=== PATIENT | female | born 1950 | race African-American/Black ===

== ENCOUNTER 2022-02-17 13:26 | Inpatient (IN) | payer MEDICARE, OTHER ==
[~2022-02-17] VITALS: Ht 162.6 cm; Wt 49.9 kg
[2022-02-17] MEDS ORDERED: ALBUTEROL SULFATE HFA 90 MCG/PUFF 8 GM INHALER IH PRN (17:00)
[2022-02-17 17:03] VITALS: BP 148/72
[2022-02-17 20:00] VITALS: BP 152/92
[2022-02-17] MEDS: BUDESONIDE/FORMOTEROL FUMARATE 80-4.5 MCG/PUFF 10.2 GM INHALER IH SCH (21:00)
[2022-02-17] MEDS: IPRATROPIUM BROMIDE HFA 17 MCG/PUFF 12.9 GM INHALER IH SCH (21:00)
[2022-02-17] MEDS: TICAGRELOR 90 MG TABLET PO SCH (21:25)
[2022-02-17] MEDS: GABAPENTIN 300 MG CAPSULE PO SCH (21:25)
[2022-02-17] MEDS: ATORVASTATIN CALCIUM 40 MG TABLET PO SCH (21:26)
[2022-02-17] MEDS: MELATONIN 3 MG TABLET PO PRN (21:29)
[2022-02-17] MEDS: ETHYL ALCOHOL 62% ANTISEPTIC NASAL SANITIZER 0.6 ML AMPUL NASAL SCH (22:10)
[2022-02-18] MEDS: ALPRAZolam 0.25 MG TABLET PO PRN (03:31)
[2022-02-18 06:30] VITALS: BP 97/56
[2022-02-18 07:07] LABS: BASOPHILS % (AUTO) 0.4 % (0.0-2.0); EOSINOPHILS % (AUTO) 1.3 % (1.0-6.0); HEMATOCRIT 21.9 % (36-46); HEMOGLOBIN 7.5 g/dL (12.0-16.0); LYMPHOCYTES # (AUTO) 2.7 K/uL (1.0-4.8); LYMPHOCYTES % (AUTO) 43.7 % (22.0-44.0); MEAN CORPUSCULAR HEMOGLOBIN 31.2 pg (26.0-34.0); MEAN CORPUSCULAR HGB CONC 34.1 G/dL (31.0-37.0); MEAN CORPUSCULAR VOLUME 92 fL (80-100); MONOCYTES # (AUTO) 0.5 K/uL (0.1-1.0); MONOCYTES % (AUTO) 7.6 % (2.0-9.0); NEUTROPHILS # (AUTO) 2.9 K/uL (1.8-7.7); PLATELET COUNT (AUTO) 169 K/uL (150-450); RED BLOOD CELL COUNT(AUTO) 2.39 MIL/uL (4.00-5.20); RED CELL DISTRIBUTION WIDTH 12.8 % (11.5-14.5)
[2022-02-18 07:22] LABS: ALANINE AMINOTRANSFERASE 24 U/L (12-78); ALKALINE PHOSPHATASE 104 U/L (46-116); ANION GAP 8 mmol/L (8-16); ASPARTATE AMINOTRANSFERASE 30 U/L (15-37); BILIRUBIN,TOTAL 0.4 mg/dL (0.1-1.0); CALCIUM, TOTAL 8.8 mg/dL (8.8-10.5); CARBON DIOXIDE 23 mmol/L (22-29); CHLORIDE 108 mmol/L (98-107); CREATININE 0.84 mg/dL (0.60-1.30); GLUCOSE,RANDOM 108 mg/dL (70-110); POTASSIUM 3.4 mmol/L (3.5-5.1); SODIUM SERUM 139 mmol/L (136-145); TOTAL PROTEIN, SERUM 6.4 g/dL (6.4-8.2); UREA NITROGEN, BLOOD 16 mg/dL (7-18)
[2022-02-18 07:23] LABS: GLOMERULAR FILTR. RATE CALC > 60 mL/min (>60)
[2022-02-18 09:00] VITALS: BP 100/64
[2022-02-18] MEDS: BUDESONIDE/FORMOTEROL FUMARATE 80-4.5 MCG/PUFF 10.2 GM INHALER IH SCH ×2 (09:00→20:20)
[2022-02-18] MEDS: IPRATROPIUM BROMIDE HFA 17 MCG/PUFF 12.9 GM INHALER IH SCH ×2 (09:00→20:20)
[2022-02-18] MEDS: ETHYL ALCOHOL 62% ANTISEPTIC NASAL SANITIZER 0.6 ML AMPUL NASAL SCH ×2 (09:08→20:20)
[2022-02-18] MEDS: MULTIVITAMINS WITH MINERALS, THERAPEUTIC TABLET PO SCH (09:09)
[2022-02-18] MEDS: SERTRALINE HCL 50 MG TABLET PO SCH (09:09)
[2022-02-18] MEDS: ASPIRIN 81 MG CHEWABLE TABLET PO SCH (09:09)
[2022-02-18] MEDS: TICAGRELOR 90 MG TABLET PO SCH ×2 (09:10→20:20)
[2022-02-18] MEDS: GABAPENTIN 300 MG CAPSULE PO SCH ×3 (09:10→20:21)
[2022-02-18] MEDS: FLUDROCORTISONE ACETATE 0.1 MG TABLET PO SCH (09:10)
[2022-02-18] MEDS ORDERED: POTASSIUM CHLORIDE 20 MEQ ER TABLET PO ONE (12:00)
[2022-02-18] MEDS: ACETAMINOPHEN 325 MG TABLET PO PRN (12:24)
[2022-02-18] MEDS ORDERED: POTASSIUM CHL 10 MEQ/WATER 50 ML IV PRN (14:45)
[2022-02-18] MEDS ORDERED: MAGNESIUM OXIDE 400 MG TABLET PO PRN (14:45)
[2022-02-18] MEDS ORDERED: MAGNESIUM SULFATE 2 GM/WATER 50 ML IV PRN (14:45)
[2022-02-18] MEDS ORDERED: MAGNESIUM SULFATE 4 GM/WATER 100 ML IV PRN (14:45)
[2022-02-18] MEDS ORDERED: POTASSIUM CHLORIDE 20 MEQ ER TABLET PO PRN (14:45)
[2022-02-18] MEDS: FERROUS SULFATE 325 MG EC TABLET PO SCH (16:34)
[2022-02-18 20:05] VITALS: BP 128/65
[2022-02-18] MEDS: MELATONIN 3 MG TABLET PO PRN (20:21)
[2022-02-18] MEDS: PANTOPRAZOLE SODIUM 40 MG DR TABLET PO SCH (20:21)
[2022-02-18] MEDS: ATORVASTATIN CALCIUM 40 MG TABLET PO SCH (20:21)
[2022-02-18] MEDS ORDERED: PANTOPRAZOLE SODIUM 40 MG DR TABLET PO SCH (21:00)
[2022-02-19 06:48] LABS: BASOPHILS % (AUTO) 0.6 % (0.0-2.0); EOSINOPHILS % (AUTO) 1.5 % (1.0-6.0); HEMATOCRIT 22.5 % (36-46); HEMOGLOBIN 7.7 g/dL (12.0-16.0); LYMPHOCYTES # (AUTO) 2.7 K/uL (1.0-4.8); LYMPHOCYTES % (AUTO) 40.1 % (22.0-44.0); MEAN CORPUSCULAR HEMOGLOBIN 31.5 pg (26.0-34.0); MEAN CORPUSCULAR HGB CONC 34.4 G/dL (31.0-37.0); MEAN CORPUSCULAR VOLUME 92 fL (80-100); MONOCYTES # (AUTO) 0.5 K/uL (0.1-1.0); MONOCYTES % (AUTO) 7.1 % (2.0-9.0); NEUTROPHILS # (AUTO) 3.4 K/uL (1.8-7.7); NEUTROPHILS % (AUTO) 50.7 % (40.0-70.0); PLATELET COUNT (AUTO) 190 K/uL (150-450); RED BLOOD CELL COUNT(AUTO) 2.45 MIL/uL (4.00-5.20)
[2022-02-19 07:13] LABS: % IRON SATURATION 16.4 % (22-44)
[2022-02-19 08:01] VITALS: BP 135/68
[2022-02-19] MEDS: GABAPENTIN 300 MG CAPSULE PO SCH ×3 (08:17→20:26)
[2022-02-19] MEDS: PANTOPRAZOLE SODIUM 40 MG DR TABLET PO SCH ×2 (08:18→20:28)
[2022-02-19] MEDS: TICAGRELOR 90 MG TABLET PO SCH ×2 (08:18→21:31)
[2022-02-19] MEDS: SERTRALINE HCL 50 MG TABLET PO SCH (08:18)
[2022-02-19] MEDS: FERROUS SULFATE 325 MG EC TABLET PO SCH ×2 (08:19→16:56)
[2022-02-19] MEDS: ASPIRIN 81 MG CHEWABLE TABLET PO SCH (08:20)
[2022-02-19] MEDS: ETHYL ALCOHOL 62% ANTISEPTIC NASAL SANITIZER 0.6 ML AMPUL NASAL SCH ×2 (08:23→20:28)
[2022-02-19] MEDS: IPRATROPIUM BROMIDE HFA 17 MCG/PUFF 12.9 GM INHALER IH SCH ×2 (08:23→21:00)
[2022-02-19] MEDS: BUDESONIDE/FORMOTEROL FUMARATE 80-4.5 MCG/PUFF 10.2 GM INHALER IH SCH ×2 (08:23→21:00)
[2022-02-19 09:00] VITALS: BP 127/70
[2022-02-19] MEDS: FLUDROCORTISONE ACETATE 0.1 MG TABLET PO SCH (09:00)
[2022-02-19 09:19] LABS: POTASSIUM 3.8 mmol/L (3.5-5.1)
[2022-02-19] MEDS: MULTIVITAMINS WITH MINERALS, THERAPEUTIC TABLET PO SCH (09:27)
[2022-02-19 20:11] VITALS: BP 141/71
[2022-02-19] MEDS: ATORVASTATIN CALCIUM 40 MG TABLET PO SCH (20:26)
[2022-02-19] MEDS: MELATONIN 3 MG TABLET PO PRN (21:30)
[2022-02-19] MEDS: MUPIROCIN CALCIUM 2% 22 GM OINTMENT NASAL SCH (21:36)
[2022-02-19] MEDS: ALPRAZolam 0.25 MG TABLET PO PRN (22:49)
[2022-02-20] MEDS: FERROUS SULFATE 325 MG EC TABLET PO SCH ×2 (08:26→17:45)
[2022-02-20] MEDS: ASPIRIN 81 MG CHEWABLE TABLET PO SCH (08:27)
[2022-02-20] MEDS: ETHYL ALCOHOL 62% ANTISEPTIC NASAL SANITIZER 0.6 ML AMPUL NASAL SCH ×2 (08:27→20:14)
[2022-02-20] MEDS: TICAGRELOR 90 MG TABLET PO SCH ×2 (08:28→20:14)
[2022-02-20] MEDS: FLUDROCORTISONE ACETATE 0.1 MG TABLET PO SCH (08:28)
[2022-02-20] MEDS: PANTOPRAZOLE SODIUM 40 MG DR TABLET PO SCH ×2 (08:29→20:15)
[2022-02-20] MEDS: MULTIVITAMINS WITH MINERALS, THERAPEUTIC TABLET PO SCH (08:29)
[2022-02-20] MEDS: GABAPENTIN 300 MG CAPSULE PO SCH ×3 (08:29→20:15)
[2022-02-20] MEDS: SERTRALINE HCL 50 MG TABLET PO SCH (08:30)
[2022-02-20] MEDS: LIDOCAINE 5% TRANSDERMAL PATCH TD SCH (08:31)
[2022-02-20] MEDS: MUPIROCIN CALCIUM 2% 22 GM OINTMENT NASAL SCH ×2 (08:34→20:14)
[2022-02-20] MEDS: BUDESONIDE/FORMOTEROL FUMARATE 80-4.5 MCG/PUFF 10.2 GM INHALER IH SCH ×2 (08:39→21:00)
[2022-02-20] MEDS: IPRATROPIUM BROMIDE HFA 17 MCG/PUFF 12.9 GM INHALER IH SCH ×2 (08:39→21:00)
[2022-02-20 08:54] VITALS: BP 106/72
[2022-02-20] MEDS: DOCUSATE SODIUM 250 MG CAPSULE PO SCH (20:14)
[2022-02-20] MEDS: ATORVASTATIN CALCIUM 40 MG TABLET PO SCH (20:15)
[2022-02-20] MEDS: MELATONIN 3 MG TABLET PO PRN (20:15)
[2022-02-20 20:20] VITALS: BP 128/59
[2022-02-20] MEDS: -LIDODERM PATCH NOTE- MISC SCH (22:49)
[2022-02-21] VITALS (7 sets, daily range): BP systolic 132–150; BP diastolic 60–75
[2022-02-21 07:14] LABS: EOSINOPHILS % (AUTO) 1.6 % (1.0-6.0); HEMOGLOBIN 7.1 g/dL (12.0-16.0); LYMPHOCYTES # (AUTO) 2.5 K/uL (1.0-4.8); LYMPHOCYTES % (AUTO) 40.7 % (22.0-44.0); MEAN CORPUSCULAR HGB CONC 35.5 G/dL (31.0-37.0); MEAN CORPUSCULAR VOLUME 93 fL (80-100); MONOCYTES # (AUTO) 0.5 K/uL (0.1-1.0); MONOCYTES % (AUTO) 8.5 % (2.0-9.0); NEUTROPHILS % (AUTO) 48.2 % (40.0-70.0); PLATELET COUNT (AUTO) 193 K/uL (150-450); RED BLOOD CELL COUNT(AUTO) 2.15 MIL/uL (4.00-5.20); RED CELL DISTRIBUTION WIDTH 13.7 % (11.5-14.5)
[2022-02-21 08:13] LABS: ANION GAP 7 mmol/L (8-16); CARBON DIOXIDE 26 mmol/L (22-29); CHLORIDE 107 mmol/L (98-107); CREATININE 1.04 mg/dL (0.60-1.30); GLUCOSE,RANDOM 114 mg/dL (70-110); POTASSIUM 3.8 mmol/L (3.5-5.1); SODIUM SERUM 140 mmol/L (136-145); UREA NITROGEN, BLOOD 16 mg/dL (7-18)
[2022-02-21 08:14] LABS: GLOMERULAR FILTR. RATE CALC > 60 mL/min (>60)
[2022-02-21 08:58] LABS: PROTHROMBIN TIME 10.6 SEC (9.4-11.6)
[2022-02-21] MEDS: IPRATROPIUM BROMIDE HFA 17 MCG/PUFF 12.9 GM INHALER IH SCH ×2 (09:00→20:43)
[2022-02-21] MEDS: BUDESONIDE/FORMOTEROL FUMARATE 80-4.5 MCG/PUFF 10.2 GM INHALER IH SCH ×2 (09:00→20:43)
[2022-02-21] MEDS ORDERED: SODIUM CHLORIDE 0.9% 500 ML IV ONE (09:07)
[2022-02-21] MEDS: FERROUS SULFATE 325 MG EC TABLET PO SCH ×2 (09:18→16:34)
[2022-02-21] MEDS: ETHYL ALCOHOL 62% ANTISEPTIC NASAL SANITIZER 0.6 ML AMPUL NASAL SCH ×2 (09:19→20:41)
[2022-02-21] MEDS: ASPIRIN 81 MG CHEWABLE TABLET PO SCH (09:19)
[2022-02-21] MEDS: MUPIROCIN CALCIUM 2% 22 GM OINTMENT NASAL SCH ×2 (09:19→20:42)
[2022-02-21] MEDS: PANTOPRAZOLE SODIUM 40 MG DR TABLET PO SCH ×2 (09:20→20:41)
[2022-02-21] MEDS: GABAPENTIN 300 MG CAPSULE PO SCH ×3 (09:20→20:41)
[2022-02-21] MEDS: MULTIVITAMINS WITH MINERALS, THERAPEUTIC TABLET PO SCH (09:20)
[2022-02-21] MEDS: DOCUSATE SODIUM 250 MG CAPSULE PO SCH ×2 (09:20→20:41)
[2022-02-21] MEDS: SERTRALINE HCL 50 MG TABLET PO SCH (09:21)
[2022-02-21] MEDS: FLUDROCORTISONE ACETATE 0.1 MG TABLET PO SCH (09:23)
[2022-02-21] MEDS: TICAGRELOR 90 MG TABLET PO SCH ×2 (09:26→20:41)
[2022-02-21] MEDS: LIDOCAINE 5% TRANSDERMAL PATCH TD SCH (09:26)
[2022-02-21] MEDS ORDERED: PEG 3350/NA SULF,BICARB,CL/KCL 4000 ML SOLUTION PO ONE (11:00)
[2022-02-21 16:54] LABS: % IRON SATURATION 23.7 % (22-44)
[2022-02-21] MEDS: ATORVASTATIN CALCIUM 40 MG TABLET PO SCH (20:41)
[2022-02-21] MEDS: -LIDODERM PATCH NOTE- MISC SCH (20:42)
[2022-02-21] MEDS: MELATONIN 3 MG TABLET PO PRN (22:33)
[2022-02-21] MEDS: 0.9% SODIUM CHLORIDE 10 ML SYRINGE IVP SCH (22:35)
[2022-02-22 07:05] LABS: BASOPHILS % (AUTO) 0.6 % (0.0-2.0); EOSINOPHILS % (AUTO) 1.6 % (1.0-6.0); HEMATOCRIT 24.4 % (36-46); HEMOGLOBIN 8.7 g/dL (12.0-16.0); LYMPHOCYTES # (AUTO) 2.6 K/uL (1.0-4.8); LYMPHOCYTES % (AUTO) 35.8 % (22.0-44.0); MEAN CORPUSCULAR HEMOGLOBIN 31.6 pg (26.0-34.0); MEAN CORPUSCULAR HGB CONC 35.6 G/dL (31.0-37.0); MEAN CORPUSCULAR VOLUME 89 fL (80-100); MONOCYTES # (AUTO) 0.6 K/uL (0.1-1.0); MONOCYTES % (AUTO) 8.1 % (2.0-9.0); NEUTROPHILS # (AUTO) 3.9 K/uL (1.8-7.7); NEUTROPHILS % (AUTO) 53.9 % (40.0-70.0); PLATELET COUNT (AUTO) 202 K/uL (150-450); RED BLOOD CELL COUNT(AUTO) 2.75 MIL/uL (4.00-5.20); RED CELL DISTRIBUTION WIDTH 15.4 % (11.5-14.5)
[2022-02-22] MEDS: SERTRALINE HCL 50 MG TABLET PO SCH (07:31)
[2022-02-22] MEDS: ASPIRIN 81 MG CHEWABLE TABLET PO SCH (07:32)
[2022-02-22] MEDS: FERROUS SULFATE 325 MG EC TABLET PO SCH ×2 (07:32→17:28)
[2022-02-22] MEDS: MULTIVITAMINS WITH MINERALS, THERAPEUTIC TABLET PO SCH (07:33)
[2022-02-22] MEDS: GABAPENTIN 300 MG CAPSULE PO SCH ×3 (07:33→20:17)
[2022-02-22] MEDS: PANTOPRAZOLE SODIUM 40 MG DR TABLET PO SCH ×2 (07:33→20:17)
[2022-02-22] MEDS: TICAGRELOR 90 MG TABLET PO SCH ×2 (07:33→20:17)
[2022-02-22] MEDS: FLUDROCORTISONE ACETATE 0.1 MG TABLET PO SCH (07:34)
[2022-02-22] MEDS: LIDOCAINE 5% TRANSDERMAL PATCH TD SCH (07:34)
[2022-02-22] MEDS: 0.9% SODIUM CHLORIDE 10 ML SYRINGE IVP SCH ×2 (07:35→20:19)
[2022-02-22] MEDS: ETHYL ALCOHOL 62% ANTISEPTIC NASAL SANITIZER 0.6 ML AMPUL NASAL SCH ×2 (07:36→20:18)
[2022-02-22] MEDS: MUPIROCIN CALCIUM 2% 22 GM OINTMENT NASAL SCH ×2 (07:37→20:18)
[2022-02-22] MEDS: IPRATROPIUM BROMIDE HFA 17 MCG/PUFF 12.9 GM INHALER IH SCH ×2 (08:52→20:18)
[2022-02-22] MEDS: DOCUSATE SODIUM 250 MG CAPSULE PO SCH ×2 (08:52→20:19)
[2022-02-22] MEDS: BUDESONIDE/FORMOTEROL FUMARATE 80-4.5 MCG/PUFF 10.2 GM INHALER IH SCH ×2 (08:52→20:18)
[2022-02-22 09:20] VITALS: BP 153/80
[2022-02-22] MEDS ORDERED: RINGERS SOLUTION,LACTATED 1,000 ML IV ONE (09:46)
[2022-02-22 19:31] VITALS: BP 143/82
[2022-02-22] MEDS: ATORVASTATIN CALCIUM 40 MG TABLET PO SCH (20:17)
[2022-02-22] MEDS: -LIDODERM PATCH NOTE- MISC SCH (20:18)
[2022-02-22] MEDS: MELATONIN 3 MG TABLET PO PRN (22:45)
[2022-02-23 08:05] VITALS: BP 139/40
[2022-02-23] MEDS: BUDESONIDE/FORMOTEROL FUMARATE 80-4.5 MCG/PUFF 10.2 GM INHALER IH SCH ×2 (09:00→19:57)
[2022-02-23] MEDS: IPRATROPIUM BROMIDE HFA 17 MCG/PUFF 12.9 GM INHALER IH SCH ×2 (09:00→19:57)
[2022-02-23] MEDS: DOCUSATE SODIUM 250 MG CAPSULE PO SCH ×2 (09:00→19:58)
[2022-02-23] MEDS: LIDOCAINE 5% TRANSDERMAL PATCH TD SCH (09:28)
[2022-02-23] MEDS: ASPIRIN 81 MG CHEWABLE TABLET PO SCH (09:29)
[2022-02-23] MEDS: MULTIVITAMINS WITH MINERALS, THERAPEUTIC TABLET PO SCH (09:30)
[2022-02-23] MEDS: SERTRALINE HCL 50 MG TABLET PO SCH (09:30)
[2022-02-23] MEDS: GABAPENTIN 300 MG CAPSULE PO SCH ×3 (09:30→20:45)
[2022-02-23] MEDS: TICAGRELOR 90 MG TABLET PO SCH ×2 (09:30→20:45)
[2022-02-23] MEDS: FLUDROCORTISONE ACETATE 0.1 MG TABLET PO SCH (09:30)
[2022-02-23] MEDS: PANTOPRAZOLE SODIUM 40 MG DR TABLET PO SCH ×2 (09:30→20:45)
[2022-02-23] MEDS: 0.9% SODIUM CHLORIDE 10 ML SYRINGE IVP SCH ×2 (09:31→19:58)
[2022-02-23] MEDS: ETHYL ALCOHOL 62% ANTISEPTIC NASAL SANITIZER 0.6 ML AMPUL NASAL SCH ×2 (09:31→20:45)
[2022-02-23] MEDS: FERROUS SULFATE 325 MG EC TABLET PO SCH ×2 (09:31→17:37)
[2022-02-23] MEDS: MUPIROCIN CALCIUM 2% 22 GM OINTMENT NASAL SCH ×2 (09:32→20:47)
[2022-02-23 20:15] VITALS: BP 150/73
[2022-02-23] MEDS: ATORVASTATIN CALCIUM 40 MG TABLET PO SCH (20:45)
[2022-02-23] MEDS: MELATONIN 3 MG TABLET PO PRN (20:45)
[2022-02-23] MEDS: -LIDODERM PATCH NOTE- MISC SCH (20:46)
[2022-02-24] MEDS ORDERED: ALENDRONATE SODIUM 70 MG TABLET PO SCH (06:30)
[2022-02-24 07:00] VITALS: BP 125/74
[2022-02-24 07:45] VITALS: BP 120/70
[2022-02-24] MEDS: FERROUS SULFATE 325 MG EC TABLET PO SCH ×2 (08:00→16:37)
[2022-02-24] MEDS: IPRATROPIUM BROMIDE HFA 17 MCG/PUFF 12.9 GM INHALER IH SCH ×2 (08:00→20:02)
[2022-02-24] MEDS: ETHYL ALCOHOL 62% ANTISEPTIC NASAL SANITIZER 0.6 ML AMPUL NASAL SCH ×2 (08:01→20:01)
[2022-02-24] MEDS: BUDESONIDE/FORMOTEROL FUMARATE 80-4.5 MCG/PUFF 10.2 GM INHALER IH SCH ×2 (08:01→20:02)
[2022-02-24] MEDS: MUPIROCIN CALCIUM 2% 22 GM OINTMENT NASAL SCH (08:01)
[2022-02-24] MEDS: ASPIRIN 81 MG CHEWABLE TABLET PO SCH (08:02)
[2022-02-24] MEDS: DOCUSATE SODIUM 250 MG CAPSULE PO SCH ×3 (08:02→20:29)
[2022-02-24] MEDS: TICAGRELOR 90 MG TABLET PO SCH ×2 (08:02→20:00)
[2022-02-24] MEDS: GABAPENTIN 300 MG CAPSULE PO SCH ×3 (08:04→20:00)
[2022-02-24] MEDS: FLUDROCORTISONE ACETATE 0.1 MG TABLET PO SCH (08:04)
[2022-02-24] MEDS: PANTOPRAZOLE SODIUM 40 MG DR TABLET PO SCH ×2 (08:04→20:01)
[2022-02-24] MEDS: SERTRALINE HCL 50 MG TABLET PO SCH (08:05)
[2022-02-24] MEDS: LIDOCAINE 5% TRANSDERMAL PATCH TD SCH (08:05)
[2022-02-24] MEDS: MULTIVITAMINS WITH MINERALS, THERAPEUTIC TABLET PO SCH (08:05)
[2022-02-24 19:59] VITALS: BP 112/70
[2022-02-24] MEDS: MELATONIN 3 MG TABLET PO PRN (20:00)
[2022-02-24] MEDS: -LIDODERM PATCH NOTE- MISC SCH (20:01)
[2022-02-24] MEDS: ATORVASTATIN CALCIUM 40 MG TABLET PO SCH (20:01)
[2022-02-24] MEDS ORDERED: DOCU-350 PO (21:29)
[2022-02-24] MEDS ORDERED: PANT-31 PO (21:29)
[2022-02-24] MEDS ORDERED: ATOR40TA28 PO (21:29)
[2022-02-24] MEDS ORDERED: FERR325T27 PO (21:29)
[2022-02-24] MEDS ORDERED: MULT-1239 PO (21:29)
[2022-02-24] MEDS ORDERED: ASPI-1450 PO (21:29)
[2022-02-24] MEDS ORDERED: TICA90TA PO (21:29)
[2022-02-24] MEDS ORDERED: GABA-1181 PO (21:29)
[2022-02-24] MEDS ORDERED: ALEN70TA65 PO (21:29)
[2022-02-24] MEDS ORDERED: SERT-158 PO (21:29)
[2022-02-24] MEDS ORDERED: LIDO700A15 TP (21:29)
[2022-02-24] MEDS ORDERED: FLUD.1 PO (21:29)
[2022-02-25 07:52] VITALS: BP 135/73
[2022-02-25] MEDS: FERROUS SULFATE 325 MG EC TABLET PO SCH ×2 (07:59→16:34)
[2022-02-25] MEDS: ASPIRIN 81 MG CHEWABLE TABLET PO SCH (08:00)
[2022-02-25] MEDS: SERTRALINE HCL 50 MG TABLET PO SCH (08:00)
[2022-02-25] MEDS: PANTOPRAZOLE SODIUM 40 MG DR TABLET PO SCH ×2 (08:00→21:00)
[2022-02-25] MEDS: GABAPENTIN 300 MG CAPSULE PO SCH ×3 (08:00→21:01)
[2022-02-25] MEDS: MULTIVITAMINS WITH MINERALS, THERAPEUTIC TABLET PO SCH (08:00)
[2022-02-25] MEDS: TICAGRELOR 90 MG TABLET PO SCH ×2 (08:01→21:00)
[2022-02-25] MEDS: LIDOCAINE 5% TRANSDERMAL PATCH TD SCH (08:01)
[2022-02-25] MEDS: ETHYL ALCOHOL 62% ANTISEPTIC NASAL SANITIZER 0.6 ML AMPUL NASAL SCH ×2 (08:02→21:00)
[2022-02-25] MEDS: DOCUSATE SODIUM 250 MG CAPSULE PO SCH ×2 (08:03→21:00)
[2022-02-25] MEDS: BUDESONIDE/FORMOTEROL FUMARATE 80-4.5 MCG/PUFF 10.2 GM INHALER IH SCH ×2 (08:03→21:00)
[2022-02-25] MEDS: IPRATROPIUM BROMIDE HFA 17 MCG/PUFF 12.9 GM INHALER IH SCH ×2 (08:03→21:00)
[2022-02-25] MEDS: FLUDROCORTISONE ACETATE 0.1 MG TABLET PO SCH (08:04)
[2022-02-25 11:35] VITALS: BP 147/84
[2022-02-25 11:40] VITALS: BP 135/87
[2022-02-25 20:01] VITALS: BP 111/50
[2022-02-25] MEDS: MELATONIN 3 MG TABLET PO PRN (21:00)
[2022-02-25] MEDS: ATORVASTATIN CALCIUM 40 MG TABLET PO SCH (21:00)
[2022-02-25] MEDS: -LIDODERM PATCH NOTE- MISC SCH (21:02)
[2022-02-26] MEDS: ACETAMINOPHEN 325 MG TABLET PO PRN ×2 (01:36→08:16)
[2022-02-26 06:12] LABS: BASOPHILS % (AUTO) 0.5 % (0.0-2.0); EOSINOPHILS % (AUTO) 2.6 % (1.0-6.0); HEMATOCRIT 23.7 % (36-46); HEMOGLOBIN 7.9 g/dL (12.0-16.0); LYMPHOCYTES # (AUTO) 2.8 K/uL (1.0-4.8); LYMPHOCYTES % (AUTO) 37.6 % (22.0-44.0); MEAN CORPUSCULAR HEMOGLOBIN 31.3 pg (26.0-34.0); MEAN CORPUSCULAR HGB CONC 33.5 G/dL (31.0-37.0); MEAN CORPUSCULAR VOLUME 93 fL (80-100); MONOCYTES # (AUTO) 0.5 K/uL (0.1-1.0); MONOCYTES % (AUTO) 6.3 % (2.0-9.0); NEUTROPHILS # (AUTO) 3.9 K/uL (1.8-7.7); PLATELET COUNT (AUTO) 233 K/uL (150-450); RED BLOOD CELL COUNT(AUTO) 2.53 MIL/uL (4.00-5.20); RED CELL DISTRIBUTION WIDTH 16.9 % (11.5-14.5)
[2022-02-26 08:00] VITALS: BP 124/73
[2022-02-26] MEDS: FERROUS SULFATE 325 MG EC TABLET PO SCH ×2 (08:12→16:31)
[2022-02-26] MEDS: IPRATROPIUM BROMIDE HFA 17 MCG/PUFF 12.9 GM INHALER IH SCH ×2 (08:12→21:00)
[2022-02-26] MEDS: ETHYL ALCOHOL 62% ANTISEPTIC NASAL SANITIZER 0.6 ML AMPUL NASAL SCH ×2 (08:13→20:21)
[2022-02-26] MEDS: BUDESONIDE/FORMOTEROL FUMARATE 80-4.5 MCG/PUFF 10.2 GM INHALER IH SCH ×2 (08:13→21:00)
[2022-02-26] MEDS: SERTRALINE HCL 50 MG TABLET PO SCH (08:14)
[2022-02-26] MEDS: PANTOPRAZOLE SODIUM 40 MG DR TABLET PO SCH ×2 (08:14→20:21)
[2022-02-26] MEDS: GABAPENTIN 300 MG CAPSULE PO SCH ×3 (08:14→20:20)
[2022-02-26] MEDS: ASPIRIN 81 MG CHEWABLE TABLET PO SCH (08:14)
[2022-02-26] MEDS: MULTIVITAMINS WITH MINERALS, THERAPEUTIC TABLET PO SCH (08:14)
[2022-02-26] MEDS: DOCUSATE SODIUM 250 MG CAPSULE PO SCH ×2 (08:14→21:00)
[2022-02-26] MEDS: TICAGRELOR 90 MG TABLET PO SCH ×2 (08:14→20:20)
[2022-02-26] MEDS: LIDOCAINE 5% TRANSDERMAL PATCH TD SCH (08:15)
[2022-02-26 20:10] VITALS: BP 135/64
[2022-02-26] MEDS: MELATONIN 3 MG TABLET PO PRN (20:21)
[2022-02-26] MEDS: ATORVASTATIN CALCIUM 40 MG TABLET PO SCH (20:21)
[2022-02-26] MEDS: -LIDODERM PATCH NOTE- MISC SCH (21:14)
[2022-02-27] MEDS: ACETAMINOPHEN 325 MG TABLET PO PRN (00:22)
[2022-02-27 06:24] LABS: BASOPHILS % (AUTO) 0.8 % (0.0-2.0); EOSINOPHILS % (AUTO) 2.7 % (1.0-6.0); HEMATOCRIT 22.5 % (36-46); HEMOGLOBIN 7.7 g/dL (12.0-16.0); MEAN CORPUSCULAR HEMOGLOBIN 32.1 pg (26.0-34.0); MEAN CORPUSCULAR HGB CONC 34.4 G/dL (31.0-37.0); MEAN CORPUSCULAR VOLUME 93 fL (80-100); MONOCYTES # (AUTO) 0.4 K/uL (0.1-1.0); MONOCYTES % (AUTO) 6.9 % (2.0-9.0); NEUTROPHILS # (AUTO) 3.2 K/uL (1.8-7.7); NEUTROPHILS % (AUTO) 55.6 % (40.0-70.0); PLATELET COUNT (AUTO) 217 K/uL (150-450); RED BLOOD CELL COUNT(AUTO) 2.41 MIL/uL (4.00-5.20); RED CELL DISTRIBUTION WIDTH 16.9 % (11.5-14.5)
[2022-02-27] MEDS: LIDOCAINE 5% TRANSDERMAL PATCH TD SCH (07:51)
[2022-02-27] MEDS: TICAGRELOR 90 MG TABLET PO SCH ×2 (07:51→20:12)
[2022-02-27] MEDS: ETHYL ALCOHOL 62% ANTISEPTIC NASAL SANITIZER 0.6 ML AMPUL NASAL SCH ×2 (07:51→20:11)
[2022-02-27] MEDS: FERROUS SULFATE 325 MG EC TABLET PO SCH ×2 (07:51→15:46)
[2022-02-27] MEDS: MULTIVITAMINS WITH MINERALS, THERAPEUTIC TABLET PO SCH (07:52)
[2022-02-27] MEDS: DOCUSATE SODIUM 250 MG CAPSULE PO SCH ×2 (07:52→20:12)
[2022-02-27] MEDS: ASPIRIN 81 MG CHEWABLE TABLET PO SCH (07:52)
[2022-02-27] MEDS: PANTOPRAZOLE SODIUM 40 MG DR TABLET PO SCH ×2 (07:52→20:12)
[2022-02-27] MEDS: SERTRALINE HCL 50 MG TABLET PO SCH (07:53)
[2022-02-27] MEDS: GABAPENTIN 300 MG CAPSULE PO SCH ×3 (07:53→20:11)
[2022-02-27] MEDS: BUDESONIDE/FORMOTEROL FUMARATE 80-4.5 MCG/PUFF 10.2 GM INHALER IH SCH ×2 (08:00→20:13)
[2022-02-27] MEDS: IPRATROPIUM BROMIDE HFA 17 MCG/PUFF 12.9 GM INHALER IH SCH ×2 (08:00→20:13)
[2022-02-27 08:05] VITALS: BP 140/73
[2022-02-27 20:01] VITALS: BP 117/87
[2022-02-27] MEDS: ATORVASTATIN CALCIUM 40 MG TABLET PO SCH (20:12)
[2022-02-27] MEDS: -LIDODERM PATCH NOTE- MISC SCH (20:12)
[2022-02-27] MEDS: MELATONIN 3 MG TABLET PO PRN (22:12)
[2022-02-28] MEDS: ACETAMINOPHEN 325 MG TABLET PO PRN (06:58)
[2022-02-28 07:40] VITALS: BP 144/73
[2022-02-28] MEDS: ETHYL ALCOHOL 62% ANTISEPTIC NASAL SANITIZER 0.6 ML AMPUL NASAL SCH ×2 (07:43→20:11)
[2022-02-28] MEDS: IPRATROPIUM BROMIDE HFA 17 MCG/PUFF 12.9 GM INHALER IH SCH ×2 (07:43→20:33)
[2022-02-28] MEDS: BUDESONIDE/FORMOTEROL FUMARATE 80-4.5 MCG/PUFF 10.2 GM INHALER IH SCH ×2 (07:43→20:34)
[2022-02-28] MEDS: FERROUS SULFATE 325 MG EC TABLET PO SCH ×2 (07:43→16:17)
[2022-02-28] MEDS: GABAPENTIN 300 MG CAPSULE PO SCH ×3 (07:44→20:11)
[2022-02-28] MEDS: ASPIRIN 81 MG CHEWABLE TABLET PO SCH (07:44)
[2022-02-28] MEDS: TICAGRELOR 90 MG TABLET PO SCH ×2 (07:44→20:11)
[2022-02-28] MEDS: PANTOPRAZOLE SODIUM 40 MG DR TABLET PO SCH ×2 (07:44→20:11)
[2022-02-28] MEDS: DOCUSATE SODIUM 250 MG CAPSULE PO SCH ×2 (07:44→20:11)
[2022-02-28] MEDS: LIDOCAINE 5% TRANSDERMAL PATCH TD SCH (07:45)
[2022-02-28] MEDS: MULTIVITAMINS WITH MINERALS, THERAPEUTIC TABLET PO SCH (07:45)
[2022-02-28] MEDS: SERTRALINE HCL 50 MG TABLET PO SCH (07:45)
[2022-02-28] MEDS ORDERED: MULT-1239 PO (09:23)
[2022-02-28] MEDS ORDERED: GABA-1181 PO (09:23)
[2022-02-28] MEDS ORDERED: PANT-31 PO (09:23)
[2022-02-28] MEDS ORDERED: TICA90TA PO (09:23)
[2022-02-28] MEDS ORDERED: ATOR40TA71 PO (09:23)
[2022-02-28] MEDS ORDERED: FERR325T27 PO (09:23)
[2022-02-28] MEDS ORDERED: SERT-439 PO (09:23)
[2022-02-28] MEDS ORDERED: ASPI81 PO (09:23)
[2022-02-28] MEDS ORDERED: ALEN70TA65 PO (09:23)
[2022-02-28] MEDS ORDERED: BUDE10.27 IH (09:23)
[2022-02-28 20:00] VITALS: BP 130/74
[2022-02-28] MEDS: MELATONIN 3 MG TABLET PO PRN (20:11)
[2022-02-28] MEDS: -LIDODERM PATCH NOTE- MISC SCH (20:34)
[2022-02-28] MEDS: ATORVASTATIN CALCIUM 40 MG TABLET PO SCH (20:38)
[2022-03-01 06:17] LABS: BASOPHILS % (AUTO) 0.8 % (0.0-2.0); EOSINOPHILS % (AUTO) 2.9 % (1.0-6.0); HEMATOCRIT 21.6 % (36-46); HEMOGLOBIN 7.3 g/dL (12.0-16.0); LYMPHOCYTES # (AUTO) 2.5 K/uL (1.0-4.8); LYMPHOCYTES % (AUTO) 38.1 % (22.0-44.0); MEAN CORPUSCULAR HEMOGLOBIN 32.5 pg (26.0-34.0); MEAN CORPUSCULAR VOLUME 96 fL (80-100); MONOCYTES # (AUTO) 0.5 K/uL (0.1-1.0); MONOCYTES % (AUTO) 8.3 % (2.0-9.0); NEUTROPHILS # (AUTO) 3.2 K/uL (1.8-7.7); NEUTROPHILS % (AUTO) 49.9 % (40.0-70.0); PLATELET COUNT (AUTO) 232 K/uL (150-450); RED BLOOD CELL COUNT(AUTO) 2.26 MIL/uL (4.00-5.20)
[2022-03-01] MEDS: LIDOCAINE 5% TRANSDERMAL PATCH TD SCH (07:38)
[2022-03-01] MEDS: TICAGRELOR 90 MG TABLET PO SCH (07:39)
[2022-03-01] MEDS: SERTRALINE HCL 50 MG TABLET PO SCH (07:39)
[2022-03-01] MEDS: GABAPENTIN 300 MG CAPSULE PO SCH (07:39)
[2022-03-01] MEDS: DOCUSATE SODIUM 250 MG CAPSULE PO SCH (07:39)
[2022-03-01] MEDS: ASPIRIN 81 MG CHEWABLE TABLET PO SCH (07:39)
[2022-03-01] MEDS: FERROUS SULFATE 325 MG EC TABLET PO SCH (07:39)
[2022-03-01] MEDS: PANTOPRAZOLE SODIUM 40 MG DR TABLET PO SCH (07:39)
[2022-03-01] MEDS: MULTIVITAMINS WITH MINERALS, THERAPEUTIC TABLET PO SCH (07:39)
[2022-03-01] MEDS: ETHYL ALCOHOL 62% ANTISEPTIC NASAL SANITIZER 0.6 ML AMPUL NASAL SCH (07:39)
[2022-03-01] MEDS: IPRATROPIUM BROMIDE HFA 17 MCG/PUFF 12.9 GM INHALER IH SCH (07:47)
[2022-03-01] MEDS: BUDESONIDE/FORMOTEROL FUMARATE 80-4.5 MCG/PUFF 10.2 GM INHALER IH SCH (07:47)
[2022-03-01 08:05] VITALS: BP 122/69
== END 2022-03-01 09:10 | disposition home or self-care (01) | DRG 65 ==
LOC: 2WR 16:42
PROVIDERS: ADMIT Physical Medicine & Rehabilitation; ATTEND Physical Medicine & Rehabilitation
PROC: 30233N1 Transfusion of Nonautologous Red Blood Cells into Peripheral Vein, Percutaneous Approach (ICD-10-PCS; 2022-02-21)
PROC: 0DB68ZX Excision of Stomach, Via Natural or Artificial Opening Endoscopic, Diagnostic (ICD-10-PCS; 2022-02-22)
PROC: 0DJD8ZZ Inspection of Lower Intestinal Tract, Via Natural or Artificial Opening Endoscopic (ICD-10-PCS; principal; 2022-02-22 10:25)
DX: I63.9 Cerebral infarction, unspecified (principal); C22.0 Liver cell carcinoma; E46 Unspecified protein-calorie malnutrition; G81.94 Hemiplegia, unspecified affecting left nondominant side; I65.23 Occlusion and stenosis of bilateral carotid arteries; I95.1 Orthostatic hypotension; J44.9 Chronic obstructive pulmonary disease, unspecified; F32.A Depression, unspecified; F41.9 Anxiety disorder, unspecified; I10 Essential (primary) hypertension; K29.70 Gastritis, unspecified, without bleeding; K70.30 Alcoholic cirrhosis of liver without ascites; K64.8 Other hemorrhoids; M47.816 Spondylosis without myelopathy or radiculopathy, lumbar region; Z74.1 Need for assistance with personal care; R41.89 Other symptoms and signs involving cognitive functions and awareness; Z60.2 Problems related to living alone; R41.841 Cognitive communication deficit; D63.8 Anemia in other chronic diseases classified elsewhere; M16.11 Unilateral primary osteoarthritis, right hip; M17.11 Unilateral primary osteoarthritis, right knee; B19.20 Unspecified viral hepatitis C without hepatic coma; Z79.82 Long term (current) use of aspirin; Z79.899 Other long term (current) drug therapy; Z79.02 Long term (current) use of antithrombotics/antiplatelets; Z82.49 Family history of ischemic heart disease and other diseases of the circulatory system; Z85.05 Personal history of malignant neoplasm of liver; Z90.49 Acquired absence of other specified parts of digestive tract
CPT/HCPCS: 74176; 80048; 80053; 82040; 82271; 82728; 83540; 83550; 83735; 84132; 85025; 85610; 86850; 86900; 86901; 86923; 87081; 92507; 92610; 93970; 97110; 97112; 97116; 97140; 97162; 97166; 97530; 97535; 99366; J3535; J7040; J7120; P9016